=== PATIENT | male | born 1960 ===

== ENCOUNTER 2020-10-04 13:01 | Observation (INO) ==
[2020-10-04 16:57] LABS: ABS Lymphocytes 1.5 10^3/ul (1.0-4.8); ABS Monocytes 1.3 10^3/ul (0-0.8); ABS Neutrophils 13.3 10^3/ul (1.5-7.7); Hematocrit 44 % (42-52); Hemoglobin 14.4 g/dL (14.0-18.0); Lymphocyte % 9.1 %; Mean Corpuscular HGB Conc 33 g/dL (31-36); Mean Corpuscular Hemoglobin 30 pg (27-31); Mean Corpuscular Volume 91 fL (80-94); Mean Platelet Volume 8.8 fL (7.4-10.4); Platelet Count 218 10^3/uL (150-450); Red Blood Count 4.82 10^6 /uL (4.18-5.48); Red Cell Distribution Width 14 % (10-15); White Blood Count 16.1 10^3/uL (3.5-10.8)
[2020-10-04] MEDS ORDERED: NS 0.9% 1000 ml BAG 1,000 ML IV ONE (17:03)
[2020-10-04] MEDS ORDERED: DOXYcycline 100 MG in NS 0.9% 250 ml 250 ML IVPB ONE (17:05)
[2020-10-04 17:08] LABS: Albumin 4.2 g/dL (3.2-5.2); Albumin/Globulin Ratio 1.4 (1-3); C Reactive Protein 142.35 mg/L (<8.01); Calcium 8.8 mg/dL (8.6-10.3); EGFR African American 98.5 (>60); EGFR Non-African American 81.4 (>60); Potassium 3.7 mmol/L (3.5-5.0); Total Protein 7.2 g/dL (6.4-8.9)
[2020-10-04] MEDS ORDERED: NS 0.9% 250 ml 250 ML ONE (18:27)
[2020-10-04] MEDS ORDERED: Iohexol 300 (CONTRAST) 10 ML SDV IV ONE (20:52)
[2020-10-05] MEDS ORDERED: Vancomycin 1,000 MG in NS 0.9% 250 ml 250 ML IVPB ONE (00:02)
[2020-10-05] MEDS ORDERED: Vancomycin per Pharmacy 1 EA NOTE FOLLOW UP SCH (01:00)
[2020-10-05] MEDS ORDERED: Cefepime 2 GM in Dextrose 2 GM/50 ML BAG IV SCH (02:30)
[2020-10-05 05:01] LABS: ABS Lymphocytes 1.1 10^3/ul (1.0-4.8); Eosinophil % 0.1 %; Hematocrit 38 % (42-52); Hemoglobin 12.8 g/dL (14.0-18.0); Lymphocyte % 9.6 %; Mean Corpuscular HGB Conc 34 g/dL (31-36); Mean Corpuscular Hemoglobin 30 pg (27-31); Mean Corpuscular Volume 89 fL (80-94); Mean Platelet Volume 9.1 fL (7.4-10.4); Nucleated Red Blood Cells % 0.1; Platelet Count 182 10^3/uL (150-450); Red Blood Count 4.25 10^6 /uL (4.18-5.48); Red Cell Distribution Width 13 % (10-15); White Blood Count 11.2 10^3/uL (3.5-10.8)
[2020-10-05 05:26] LABS: C Reactive Protein 127.75 mg/L (<8.01); Calcium 8.3 mg/dL (8.6-10.3); EGFR African American 120.1 (>60); EGFR Non-African American 99.3 (>60); Potassium 3.5 mmol/L (3.5-5.0)
[2020-10-05] MEDS: Vancomycin 750 MG in NS 0.9% 250 ML IVPB SCH ×2 (07:22→10:01)
[2020-10-05] MEDS ORDERED: Vancomycin Trough Check NOTE FOLLOW UP ONE (07:30)
[2020-10-05] MEDS ORDERED: CMC:Pravastatin 20 mg TAB (NF) PO SCH (09:00)
[2020-10-05 11:50] VITALS: BP 106/65
[2020-10-06] MEDS ORDERED: Vancomycin Trough Check NOTE FOLLOW UP ONE (07:30)
== END 2020-10-05 14:40 | disposition home or self-care (01) ==
LOC: ED 13:01 → SSU 13:01 → MED 13:01
PROVIDERS: ADMIT Internal Medicine; ATTEND Hospitalist